=== PATIENT | female | born 1980 | race Caucasian/White ===

== ENCOUNTER → 2024-06-04 06:42 | Outpatient (REF) | payer OTHER, SELFPAY | LOC: HWWDC 06:42 | PROVIDERS: ATTENDING PHYSICIAN Nurse Practitioner Adult Health | DX: Z12.31 Encounter for screening mammogram for malignant neoplasm of breast (principal) | CPT/HCPCS: 77063; 77067 ==

== ENCOUNTER → 2024-06-10 09:38 | Outpatient (REF) | payer OTHER, SELFPAY | LOC: WDC 09:38 | PROVIDERS: ATTENDING PHYSICIAN Nurse Practitioner Adult Health; REFERRING PHYSICIAN Obstetrics & Gynecology | DX: R92.8 Other abnormal and inconclusive findings on diagnostic imaging of breast (principal) | CPT/HCPCS: 76642 ==

== ENCOUNTER → 2024-10-22 13:29 | Outpatient (REF) | payer BC, SELFPAY | LOC: HWRCS 13:29 | PROVIDERS: ATTENDING PHYSICIAN Internal Medicine Cardiovascular Disease; FAMILY PHYSICIAN Nurse Practitioner Adult Health | DX: R94.31 Abnormal electrocardiogram [ECG] [EKG] (principal) | CPT/HCPCS: 93306 ==

== ENCOUNTER → 2025-04-16 15:29 | Outpatient (REF) | payer BC, SELFPAY | LOC: RAD 15:29 | PROVIDERS: ATTENDING PHYSICIAN Surgery; FAMILY PHYSICIAN Nurse Practitioner Adult Health | DX: R22.42 Localized swelling, mass and lump, left lower limb (principal) | CPT/HCPCS: 76882 ==

== ENCOUNTER → 2025-04-18 14:53 | Outpatient (REF) | payer BC, SELFPAY | LOC: WDC 14:53 | PROVIDERS: ATTENDING PHYSICIAN Nurse Practitioner Adult Health | DX: R92.8 Other abnormal and inconclusive findings on diagnostic imaging of breast (principal) | CPT/HCPCS: 77061; 77065 ==

== ENCOUNTER → 2025-05-05 08:59 | Outpatient (REF) | payer BC, SELFPAY | LOC: MRI 08:59 | PROVIDERS: ATTENDING PHYSICIAN Surgery; FAMILY PHYSICIAN Nurse Practitioner Adult Health | DX: R22.42 Localized swelling, mass and lump, left lower limb (principal) | CPT/HCPCS: 73720; A9575 ==